=== PATIENT | female | born 1985 | race Caucasian/White ===

== ENCOUNTER 2020-04-03 12:49 | Emergency (ER) | payer MEDICAID ==
[~2020-04-03] VITALS: Ht 156.2 cm; Wt 58.7 kg
[~2020-04-03 12:49] MED LIST: CALC600T56 PO; FERR325E14 PO; PREN-385 PO
[2020-04-03 12:57] VITALS: BP 137/92
--- NOTE | 2020-04-03 13:07 | NUR ---
contacted Joann MACKEY to give mandated report of pt situation. PD stated they will send an officer to come take pt statement.
[2020-04-03] MEDS ORDERED: HYDROcodone/APAP 5/325 MG 1 TAB TAB PO ONE (13:45)
--- NOTE | 2020-04-03 13:47 | NUR ---
34 YEAR OLD FEMALE COMPLAINS OF LEFT HAND PAIN X TODAY. PT STATES THAT GRABBED FINGER AND BROKE IT WHEN HE WAS ANGRY. LEFT HAND VISIBLY SWOLLEN, LIMITED ROM, RADIAL PULSE +2, CAP REFILL <3 SEC. PT AOX4, BREATHING EVEN AND UNLABORED, SKIN WARM AND DRY. BED IN LOWEST POSITION, LOCKED, BED RAIL UPX1. PMH - DENIES ALLERGIES - NKA
--- NOTE | 2020-04-03 13:55 | NUR ---
applied boxer splint to left arm without any issues
[2020-04-03] MEDS ORDERED: NAPR-54 PO (13:59)
[2020-04-03] MEDS ORDERED: ACET-8386 PO (13:59)
--- NOTE | 2020-04-03 14:10 | NUR ---
[facility] CALLED, STATE THEY WILL BE HERE SOON
--- NOTE | 2020-04-03 14:25 | NUR ---
[facility] AT PT BEDSIDE.
[2020-04-03 15:05] VITALS: BP 137/116
--- NOTE | 2020-04-03 15:13 | NUR ---
[facility] REFERENCE: [id number]. OFFICER: Flavia RODRIGUEZ
--- NOTE | 2020-04-03 16:03 | NUR ---
Patient discharged with v/s stable. Written and verbal after care instructions about metacarpal fracture given and explained in khmer. Patient alert, oriented and verbalized understanding of instructions. Ambulatory with steady gait. All questions addressed prior to discharge. ID band removed. Patient advised to follow up with PMD. Rx of hydrocodone and naproxen given. Patient educated on indication of medication including possible reaction and side effects. Opportunity to ask questions provided and answered.
== END 2020-04-03 16:03 | disposition home or self-care (01) ==
LOC: MED 12:49
DX: S62.395A Other fracture of fourth metacarpal bone, left hand, initial encounter for closed fracture (principal); Z79.899 Other long term (current) drug therapy; X50.9XXA Other and unspecified overexertion or strenuous movements or postures, initial encounter; Y93.89 Activity, other specified; Y92.89 Other specified places as the place of occurrence of the external cause; Y99.8 Other external cause status
CPT/HCPCS: 73130; 81025; 99283